=== PATIENT | male | born 1995 | race Two or more races ===

== ENCOUNTER 2020-09-25 04:12 | Inpatient (IN) | payer OTHER ==
[~2020-09-25] VITALS: Ht 175.3 cm; Wt 94.9 kg
[2020-09-25] MEDS ORDERED: ACETAMINOPHEN 500 MG TAB PO ONE (06:15)
[2020-09-25] MEDS ORDERED: PIPERACILLIN-TAZOB 3.375GM 100 ML IV ONE (06:15)
[2020-09-25] MEDS ORDERED: SODIUM CHLORIDE 0.9% 1,000 ML IV ONE (06:15)
[2020-09-25] MEDS ORDERED: ACETAMINOPHEN 325 MG TAB PO ONE (06:15)
[2020-09-25 07:01] LABS: Basophils # (auto) 0 10 ^3/uL (0-0.2); Basophils % (auto) 0.4 % (0.0-2.0); Eosinophils # (auto) 0 10 ^3/uL (0-0.8); Eosinophils % (auto) 0.1 % (0.0-7.0); Hematocrit 45.8 % (41.0-53.0); Hemoglobin 15.7 g/dL (13.5-17.5); Lymphocytes # (auto) 0.7 10 ^3/uL (0.4-5.4); Lymphocytes % (auto) 26.2 % (10.0-50.0); Mean Corpuscular Hemoglobin 30.5 pg (28.0-32.0); Mean Corpuscular Hgb Conc. 34.3 g/dL (32.0-36.0); Mean Corpuscular Volume 88.8 fL (80.0-100.0); Monocytes # (auto) 0.4 10 ^3/uL (0-1.3); Monocytes % (auto) 12.6 % (0.0-12.0); Neutrophils # (auto) 1.7 10 ^3/uL (1.6-8.6); Neutrophils % (auto) 60.7 % (37.0-80.0); Nucleated Red Blood Cells % 0.4 %; Platelet Count (auto) 178 10^3/uL (140-450); Red Blood Cells 5.16 10^6/uL (4.5-5.90); Red Cell Distribution Width 12.8 % (11.8-14.3); White Blood Cell 2.8 10^3/uL (4.4-10.8)
[2020-09-25] MEDS ORDERED: AZITHROMYCIN 500MG/ 250ML 250 ML IV ONE (07:45)
[2020-09-25 07:54] LABS: Alanine Aminotransferase 34 U/L (16-61); Alkaline Phosphatase 57 U/L (45-117); Anion Gap 8 (5-15); Aspartate Aminotransferase 25 U/L (15-37); Blood Urea Nitrogen 9 mg/dL (7-18); Calcium 9.1 mg/dL (8.5-10.1); Carbon Dioxide 28 mmol/L (21-32); Chloride 98 mmol/L (98-107); GFR African American 87 mL/min; GFR Non-African American 72 mL/min; Glucose 95 mg/dL (74-106); Potassium 4.1 mmol/L (3.5-5.1); Sodium 134 mmol/L (136-145)
[2020-09-25 07:55] LABS: Albumin 4.1 g/dL (3.4-5.0); Bilirubin, Total 0.5 mg/dL (0.2-1.0); Total Protein 8.4 g/dL (6.4-8.2)
[2020-09-25] MEDS ORDERED: ASCORBIC ACID 500 MG TAB PO ONE (08:00)
[2020-09-25] MEDS ORDERED: ZINC SULFATE 220mg CAP or TAB PO ONE (08:00)
[2020-09-25] MEDS ORDERED: ACETAMINOPHEN 500 MG TAB PO PRN ×2 (09:15→10:15)
[2020-09-25 09:24] VITALS: BP 100/56
[2020-09-25 09:37] LABS: Magnesium 2.1 mg/dL (1.6-2.6)
[2020-09-25] MEDS: ZINC SULFATE 220mg CAP or TAB PO SCH (09:40)
[2020-09-25] MEDS: ASCORBIC ACID 1,000 MG TAB PO SCH (09:41)
[2020-09-25 09:46] LABS: CRP High Sensitivity 6.27 mg/dL (< 0.3)
[2020-09-25] MEDS: BUDESONIDE (INHALATION) 180 MCG IH IN SCH ×2 (10:00→22:07)
[2020-09-25] MEDS: DexAMETHasone SOD PHOS 10MG/1ML VIAL INJ IV SCH (10:05)
[2020-09-25] MEDS: DOXYCYCLINE 100MG/250ML 250 ML IV SCH ×2 (10:05→21:22)
[2020-09-25] MEDS ORDERED: ONDANSETRON HCL 4 MG/2 ML VIAL ONE (10:13)
[2020-09-25] MEDS ORDERED: ONDANSETRON HCL 4 MG/2 ML VIAL IV PRN (10:15)
[2020-09-25] MEDS ORDERED: MORPHINE SULF INJ 2 MG/ML SYRINGE 1ML IV PRN (10:15)
[2020-09-25] MEDS: ENOXAPARIN SOD 40 MG/0.4 ML SYRINGE SC SCH (10:19)
[2020-09-25] MEDS: CHOLECALCIFEROL (VITD3) 2,000 UNIT CAP PO SCH (10:19)
--- NOTE | 2020-09-25 11:50 | NUR ---
Telemetry admit from ER CLARENCE HIDALGO admitted to Telemetry unit after SBAR received. Patient oriented to Karen Petty, primary RN, unit, room, bed, and unit policies regarding patient care and visiting hours. Patient now on continuous telemetry monitoring, tele box # 7 and telemetry reading on arrival to unit is . Patient placed on bedside oxygen, weighed by bedscale and encouraged to call if they need something. All questions and concerns addressed, patient verbalized understanding. Note:
[2020-09-25 12:00] VITALS: BP 110/64
[2020-09-25] MEDS ORDERED: ONDANSETRON HCL 4 MG/2 ML VIAL IV ONE (12:00)
--- NOTE | 2020-09-25 12:00 | NUR ---
PT IS ALERT ORIENTED X4, ROOM AIR 96%, NO DISTRESS NOTED, NO COUGH NOTED AT THIS TIME, PAIN 0/10, ABLE TO AMBULATE AND SELF REPOSITION NEEDED, ORIENTED TO CALL LIGHT
--- NOTE | 2020-09-25 12:06 | NUR ---
INFLUENZA AB SAMPLE, SWAPS TO LAB
[2020-09-25 12:31] VITALS: BP 113/74
[2020-09-25] MEDS: ALBUTEROL SULF HFA 90MCG INH 200DOSE IN SCH ×2 (14:00→22:06)
--- NOTE | 2020-09-25 14:00 | NUR ---
INCENTIVE SPIROMETR EDUCATED PT HOW TO USE IT, VERBALIS UNDERSTANDING, CONTINUE MONITORING
[2020-09-25 17:18] VITALS: BP 124/64
--- NOTE | 2020-09-25 18:46 | NUR ---
PT CONTINUE STABLE, TOLERATED DIET, AMBULATE TO BATHROOM NEEDED, CONTINUE MONITORING
[2020-09-25 22:00] VITALS: BP 133/63
[2020-09-26 05:00] VITALS: BP 117/66
[2020-09-26] MEDS: ALBUTEROL SULF HFA 90MCG INH 200DOSE IN SCH ×3 (06:16→22:25)
[2020-09-26] MEDS: BUDESONIDE (INHALATION) 180 MCG IH IN SCH ×2 (06:16→22:25)
[2020-09-26 06:37] LABS: Basophils # (auto) 0 10 ^3/uL (0-0.2); Basophils % (auto) 0.3 % (0.0-2.0); Eosinophils # (auto) 0 10 ^3/uL (0-0.8); Hematocrit 43.9 % (41.0-53.0); Hemoglobin 14.6 g/dL (13.5-17.5); Lymphocytes % (auto) 28.1 % (10.0-50.0); Mean Corpuscular Hemoglobin 29.8 pg (28.0-32.0); Mean Corpuscular Hgb Conc. 33.2 g/dL (32.0-36.0); Mean Corpuscular Volume 89.7 fL (80.0-100.0); Monocytes # (auto) 0.6 10 ^3/uL (0-1.3); Monocytes % (auto) 15.2 % (0.0-12.0); Neutrophils # (auto) 2.1 10 ^3/uL (1.6-8.6); Neutrophils % (auto) 56.4 % (37.0-80.0); Nucleated Red Blood Cells % 0.1 %; Platelet Count (auto) 171 10^3/uL (140-450); Red Cell Distribution Width 12.9 % (11.8-14.3); White Blood Cell 3.6 10^3/uL (4.4-10.8)
[2020-09-26 06:55] LABS: Calcium 8.9 mg/dL (8.5-10.1); Potassium 4.2 mmol/L (3.5-5.1)
[2020-09-26 07:01] LABS: Albumin 3.6 g/dL (3.4-5.0); BUN/Creatinine Ratio 9.3; Bilirubin, Total 0.3 mg/dL (0.2-1.0); Total Protein 7.5 g/dL (6.4-8.2)
--- NOTE | 2020-09-26 08:00 | NUR ---
ASSESSMENT NOTE PT IS ALERT ORIENTED X4, RESTING IN BED IN RA, NO DISTRESS NOTED, ABLE TO SELF REPOSITION, AND VERBALIS HIS NEEDS, NO DISTRESS NOTED, PAIN 0/10, CALL LIGHT WITHIN REACH
--- NOTE | 2020-09-26 08:30 | NUR ---
TINGED BLOOD SPUTUM PT IN THE BATHROOM HAS A COUGH, WITH A TINGED BLOOD SPUTUM, NO DISTRESS NOTED
[2020-09-26 09:00] VITALS: BP 130/67
[2020-09-26] MEDS: DexAMETHasone SOD PHOS 10MG/1ML VIAL INJ IV SCH (09:22)
[2020-09-26] MEDS: ASCORBIC ACID 1,000 MG TAB PO SCH (09:23)
[2020-09-26] MEDS: FAMOTIDINE 20 MG TAB PO SCH (09:23)
[2020-09-26] MEDS: DOXYCYCLINE 100MG/250ML 250 ML IV SCH ×2 (09:23→22:19)
[2020-09-26] MEDS: CHOLECALCIFEROL (VITD3) 2,000 UNIT CAP PO SCH (09:23)
[2020-09-26] MEDS: ZINC SULFATE 220mg CAP or TAB PO SCH (09:23)
[2020-09-26] MEDS: ENOXAPARIN SOD 40 MG/0.4 ML SYRINGE SC SCH (09:24)
--- NOTE | 2020-09-26 11:40 | NUR ---
IV removal IV DC'd with sterile technique, SINCE ITS LEAKINGcatheter fully intact. Pressure dressing applied to site. Patient tolerated procedure well. Discharged with aftercare instructions per MD. NOTE:
--- NOTE | 2020-09-26 11:58 | NUR ---
IV insertion IV access obtained, via clean sterile technique by inserting 22 gauge catheter at after attempt(s). IV secured properly. No trauma to site. Patient tolerated procedure well.
--- NOTE | 2020-09-26 12:30 | NUR ---
DR DAMON AT BED SIDE FOLLOWING UP ON PT, MADE AWARE OF SPUTUM TINGED BLOOD, INFORM PT THAT HE WILL GOING TO HAVE A CHEST CT, EXPLAIN WHY, VERBALIS UNDERSTANDING
[2020-09-26 13:00] VITALS: BP 116/68
[2020-09-26] MEDS ORDERED: IOHEXOL 350 MG/ML 100ML IJ ONE (14:19)
[2020-09-26 16:59] VITALS: BP 134/72
--- NOTE | 2020-09-26 18:34 | NUR ---
PT CONTINUE STABLE, CONTINUE MONITORING
--- NOTE | 2020-09-26 19:40 | NUR ---
Opening Shift Note Assumed care of patient. Patient is awake, alert, and oriented X 4. No S/S of respiratory distress. Pt is on RA. Respirations are regular and non-labored. Pt denies pain at this time. Bed in lowest locked position, side rails up X 2, call light is within reach. POC discussed and pt instructed to call for assistance as needed. Will continue to monitor for changes Q1hr and PRN.
[2020-09-26 22:00] VITALS: BP 106/54
[2020-09-26] MEDS: HYDROcodone-ACET 5/325MG TAB PO PRN (22:19)
[2020-09-27 05:00] VITALS: BP 109/59
[2020-09-27] MEDS: BUDESONIDE (INHALATION) 180 MCG IH IN SCH ×2 (06:34→21:36)
[2020-09-27] MEDS: ALBUTEROL SULF HFA 90MCG INH 200DOSE IN SCH ×3 (06:34→21:36)
[2020-09-27 07:20] LABS: Basophils # (auto) 0 10 ^3/uL (0-0.2); Basophils % (auto) 0.2 % (0.0-2.0); Eosinophils # (auto) 0 10 ^3/uL (0-0.8); Hematocrit 41.9 % (41.0-53.0); Hemoglobin 14.2 g/dL (13.5-17.5); Lymphocytes # (auto) 1.4 10 ^3/uL (0.4-5.4); Lymphocytes % (auto) 24.6 % (10.0-50.0); Mean Corpuscular Hemoglobin 30.2 pg (28.0-32.0); Mean Corpuscular Hgb Conc. 33.8 g/dL (32.0-36.0); Mean Corpuscular Volume 89.4 fL (80.0-100.0); Monocytes # (auto) 0.6 10 ^3/uL (0-1.3); Monocytes % (auto) 10.2 % (0.0-12.0); Neutrophils # (auto) 3.7 10 ^3/uL (1.6-8.6); Nucleated Red Blood Cells % 1.3 %; Platelet Count (auto) 167 10^3/uL (140-450); Red Blood Cells 4.69 10^6/uL (4.5-5.90); Red Cell Distribution Width 12.6 % (11.8-14.3); White Blood Cell 5.6 10^3/uL (4.4-10.8)
[2020-09-27 07:43] LABS: BUN/Creatinine Ratio 10.7; Calcium 8.5 mg/dL (8.5-10.1); Potassium 4.2 mmol/L (3.5-5.1)
--- NOTE | 2020-09-27 08:00 | NUR ---
ASSESSMENT NOTE PT IS ALERT ORIENTED X4, RESTING IN BED IN RA, NO DISTRESS NOTED, ABLE TO SELF REPOSITION, AND VERBALIS HIS NEEDS, NO DISTRESS NOTED, PAIN 0/10, PT IS COUGHING MORE, COMPARING YESTERDAY, NON PRODUCTIVE COUGH, NO BLOOD NOTED, MADE AWARE THAT WILL CALL THE HOSPITAL LIST FOR A COUGH MEDS, CALL LIGHT WITHIN REACH
[2020-09-27 09:00] VITALS: BP 137/71
[2020-09-27] MEDS: ZINC SULFATE 220mg CAP or TAB PO SCH (09:53)
[2020-09-27] MEDS: ASCORBIC ACID 1,000 MG TAB PO SCH (09:53)
[2020-09-27] MEDS: DexAMETHasone SOD PHOS 10MG/1ML VIAL INJ IV SCH (09:53)
[2020-09-27] MEDS: FAMOTIDINE 20 MG TAB PO SCH (09:53)
[2020-09-27] MEDS: DOXYCYCLINE 100MG/250ML 250 ML IV SCH ×2 (09:53→22:23)
[2020-09-27] MEDS: ENOXAPARIN SOD 40 MG/0.4 ML SYRINGE SC SCH (09:54)
[2020-09-27] MEDS: CHOLECALCIFEROL (VITD3) 2,000 UNIT CAP PO SCH (09:54)
--- NOTE | 2020-09-27 12:19 | NUR ---
PT IS TAKING A SHOWER, SUPPLIES GIVEN TO PT
[2020-09-27 13:00] VITALS: BP 117/58
[2020-09-27] MEDS: guaiFENesin-DM 100/10mg/5ml SYR PO PRN ×2 (13:05→22:23)
[2020-09-27 17:00] VITALS: BP 103/47
--- NOTE | 2020-09-27 18:05 | NUR ---
PT CONTINUE STABLE, CONTINUE MONITORING
--- NOTE | 2020-09-27 19:30 | NUR ---
Opening Shift Note Received report from cheryl Jones RN. Assumed care of patient, awake and alert. No S/S of distress/SOB or pain, but c/o cough with small amount of bloody sputum. Will give cough medication as ordered. Instructed on POC and to call for assist PRN, will continue to monitor for changes Q1hr and PRN. Bed placed in lowest position and call light within reach.
[2020-09-27 22:00] VITALS: BP 118/64
[2020-09-27] MEDS: HYDROcodone-ACET 5/325MG TAB PO PRN (22:39)
--- NOTE | 2020-09-28 01:20 | NUR ---
IV insertion IV access obtained, via clean sterile technique by inserting 22 gauge catheter at right hand after first attempt. IV secured properly. No trauma to site. Patient tolerated procedure well.
[2020-09-28 05:58] VITALS: BP 136/66
[2020-09-28] MEDS: ALBUTEROL SULF HFA 90MCG INH 200DOSE IN SCH ×3 (06:30→21:45)
[2020-09-28] MEDS: BUDESONIDE (INHALATION) 180 MCG IH IN SCH ×2 (06:30→21:45)
[2020-09-28 06:41] LABS: Basophils # (auto) 0 10 ^3/uL (0-0.2); Basophils % (auto) 0.6 % (0.0-2.0); Eosinophils # (auto) 0 10 ^3/uL (0-0.8); Eosinophils % (auto) 0.1 % (0.0-7.0); Hematocrit 42.8 % (41.0-53.0); Hemoglobin 14.5 g/dL (13.5-17.5); Lymphocytes # (auto) 0.9 10 ^3/uL (0.4-5.4); Lymphocytes % (auto) 15.8 % (10.0-50.0); Mean Corpuscular Hemoglobin 30.1 pg (28.0-32.0); Mean Corpuscular Hgb Conc. 33.9 g/dL (32.0-36.0); Mean Corpuscular Volume 88.8 fL (80.0-100.0); Monocytes # (auto) 0.6 10 ^3/uL (0-1.3); Monocytes % (auto) 10.1 % (0.0-12.0); Neutrophils # (auto) 4.3 10 ^3/uL (1.6-8.6); Neutrophils % (auto) 73.4 % (37.0-80.0); Nucleated Red Blood Cells % 0.1 %; Platelet Count (auto) 172 10^3/uL (140-450); Red Blood Cells 4.82 10^6/uL (4.5-5.90); Red Cell Distribution Width 12.8 % (11.8-14.3); White Blood Cell 5.9 10^3/uL (4.4-10.8)
[2020-09-28 06:59] LABS: Calcium 8.7 mg/dL (8.5-10.1); Potassium 3.8 mmol/L (3.5-5.1)
[2020-09-28 07:03] LABS: BUN/Creatinine Ratio 10.5
[2020-09-28 08:32] VITALS: BP 120/60
[2020-09-28 09:00] VITALS: BP 120/60
[2020-09-28] MEDS: DOXYCYCLINE 100MG/250ML 250 ML IV SCH ×2 (09:18→21:47)
[2020-09-28] MEDS: DexAMETHasone SOD PHOS 10MG/1ML VIAL INJ IV SCH (09:18)
[2020-09-28] MEDS: CHOLECALCIFEROL (VITD3) 2,000 UNIT CAP PO SCH (09:19)
[2020-09-28] MEDS: guaiFENesin-DM 100/10mg/5ml SYR PO PRN ×2 (09:19→22:56)
[2020-09-28] MEDS: FAMOTIDINE 20 MG TAB PO SCH (09:19)
[2020-09-28] MEDS: ENOXAPARIN SOD 40 MG/0.4 ML SYRINGE SC SCH (09:19)
[2020-09-28] MEDS: ZINC SULFATE 220mg CAP or TAB PO SCH (09:20)
[2020-09-28] MEDS: ASCORBIC ACID 1,000 MG TAB PO SCH (09:20)
--- NOTE | 2020-09-28 10:58 | NUR ---
Nutrition Assessment Note please see attached link for complete assessment Est energy needs ABW 85 [id number] kcal (23-25 kcal/kg ABW), Est protein needs: 85-93 g (1.0-1.1 g/kg ABW). Will reassess prn. Addendum: 09/28/20 at [address] Amended: Links added.
[2020-09-28] MEDS ORDERED: ASCO10003 PO (12:04)
[2020-09-28] MEDS ORDERED: DOXY-332 PO (12:04)
[2020-09-28] MEDS ORDERED: GUAI600T23 PO (12:05)
--- NOTE | 2020-09-28 12:34 | NUR ---
MD ROUNDING MD Alexandra DAMON AT BEDSIDE. ALL QUESTIONS AND CONCERNS ADDRESSED AT THIS TIME. PER MD PATIENT IS OKAY TO BE DISCHARGED HE HAS BEEN ON ROOM AIR SINCE ADMISSION
[2020-09-28 13:00] VITALS: BP 117/59
--- NOTE | 2020-09-28 13:03 | NUR ---
PATIENT CALLED TO ROOM PATIENT STATES "CAN YOU PLEASE CHECK MY OXYGEN" UPON ASSESSMENT PATIENT HAS 25 RR AND HEART RATE 73 WITH SPO2 88% - 90% ON ROOM AIR. RN WILL PAGE MD WITH UPDATED RESULTS
--- NOTE | 2020-09-28 13:07 | NUR ---
RETURNED PAGE. PER RN IS TO RECHECK OXYGEN IN TWO HOURS AND CALL MD BACK WITH RESULTS
--- NOTE | 2020-09-28 13:07 | NUR ---
PAGED RE: PATIENT OXYGEN SATURATION. AWAITING CALL BACK
--- NOTE | 2020-09-28 15:24 | NUR ---
SPO2 RE-ASSESSMENT SPO2 ON ROOM AIR 88% WILL CALL MD AND UPDATE ON STATUS
--- NOTE | 2020-09-28 15:25 | NUR ---
LAW DAMON RE: SPO2 READING 88% ON ROOM AIR
[2020-09-28 17:06] VITALS: BP 104/55
--- NOTE | 2020-09-28 19:55 | NUR ---
OPENING SHIFT NOTE Assumed care of patient who is A&O x4. Currently on 2L NC. SPo2 is 95% at this time. Reports SOB at rest and exertion and productive cough with green colored sputum as well as diarrhea. Denies pain at this time. PIV in right hand is intact and patent. Flushed with 10ml NS. POC discussed and patient verbalizes understanding. Bed is in low locked position with side rails up x2. call light is within reach and patient encouraged to call for assistance when needed. Will continue to monitor for changes PRN.
--- NOTE | 2020-09-28 21:30 | NUR ---
Patient sitting at edge of bed with noted labored breathing and dry coughing. Patient states he just returned from the restroom and, "This happens every time I walk to the bathroom". Spo2 is 92% on RA. Patient encouraged to replace nasal canula. Patient laid back in bed and nasal canula replaced. SPo2 increased to 94% on 2L.
[2020-09-28 22:00] VITALS: BP 112/67
--- NOTE | 2020-09-29 | NUR ---
HOSPITALIST Patient reports difficulty sleeping for the past two nights. Requests sleeping pill. Hospitalist paged. Awaiting call back.
[2020-09-29] MEDS ORDERED: TEMAZEPAM 15 MG CAP PO ONE (00:30)
--- NOTE | 2020-09-29 00:30 | NUR ---
HOSPITALIST CALL BACK Received call from Bolivar Wilde NP regarding patient's request for sleeping pill. New orders received. Read back and verified. Will follow through.
--- NOTE | 2020-09-29 05:20 | NUR ---
TEMPERATURE Patient's oral temperature is 101.2. Cooling measures applied and Tylenol administered according to orders.
[2020-09-29 06:03] VITALS: BP 127/63
[2020-09-29] MEDS: ALBUTEROL SULF HFA 90MCG INH 200DOSE IN SCH ×3 (06:28→23:25)
[2020-09-29] MEDS: BUDESONIDE (INHALATION) 180 MCG IH IN SCH ×2 (06:29→23:25)
--- NOTE | 2020-09-29 06:30 | NUR ---
REASSESSMENT Temperature reassessed and is 97.7 orally. Cooling measures discontinued.
--- NOTE | 2020-09-29 07:26 | NUR ---
OPENING SHIFT NOTE Assumed care of patient who is A&O x4. Currently on 2L NC. SPo2 is 95% at this time. Reports SOB at rest and exertion and productive cough with green colored sputum as well as diarrhea. Denies pain at this time. Bed is in low locked position with side rails up x2. call light is within reach and patient encouraged to call for assistance when needed. Will continue to monitor for changes PRN.
[2020-09-29 08:33] VITALS: BP 117/58
[2020-09-29] MEDS: ENOXAPARIN SOD 40 MG/0.4 ML SYRINGE SC SCH (08:34)
[2020-09-29] MEDS: ZINC SULFATE 220mg CAP or TAB PO SCH (08:34)
[2020-09-29] MEDS: FAMOTIDINE 20 MG TAB PO SCH (08:34)
[2020-09-29] MEDS: CHOLECALCIFEROL (VITD3) 2,000 UNIT CAP PO SCH (08:34)
[2020-09-29] MEDS: ASCORBIC ACID 1,000 MG TAB PO SCH (08:35)
[2020-09-29] MEDS: DexAMETHasone SOD PHOS 10MG/1ML VIAL INJ IV SCH (08:35)
[2020-09-29] MEDS: DOXYCYCLINE 100MG/250ML 250 ML IV SCH ×2 (08:35→21:59)
--- NOTE | 2020-09-29 10:58 | NUR ---
LAW DAMON RE: CRITICAL ABG RESULTS. AWAITING CALL BACK
--- NOTE | 2020-09-29 11:18 | NUR ---
MD Alexandra DAMON RETURNED PAGE NEW ORDERS RECEIVED.
--- NOTE | 2020-09-29 11:30 | NUR ---
IV insertion IV access obtained, via clean sterile technique by inserting 22 gauge catheter at RIGHT FOREARM after 1 attempt(s). IV secured properly. No trauma to site. Patient tolerated well.
--- NOTE | 2020-09-29 11:31 | NUR ---
IV removal IV DC'd with clean sterile technique, catheter fully intact. Pressure dressing applied to site. Patient tolerated well.
[2020-09-29 12:37] VITALS: BP 123/73
[2020-09-29 16:42] VITALS: BP 131/62
[2020-09-29 17:38] LABS: Albumin 3.2 g/dL (3.4-5.0); Potassium 4.2 mmol/L (3.5-5.1)
[2020-09-29 17:41] LABS: BUN/Creatinine Ratio 10.2; Bilirubin, Total 0.5 mg/dL (0.2-1.0); Total Protein 7.4 g/dL (6.4-8.2)
[2020-09-29] MEDS ORDERED: REMDESIVIR 200 MG in NS 210ml LOADING DOSE ADULT IV ONE (20:00)
--- NOTE | 2020-09-29 20:45 | NUR ---
Opening Shift Note Assumed care of patient, awake and alert, oriented x 4. on oxygen at 3L via NC, No S/S of distress. Patient turns independently in bed and ambulates with steady gait. Bed in lowest locked position with side rails up x 2 and call light within reach. Instructed on POC and to call for assist PRN, will continue to monitor for changes Q1hr and PRN.
--- NOTE | 2020-09-29 20:53 | NUR ---
REMDESIVIR STARTED BP 121/65. NO S/S OF DISTRESS.
[2020-09-29] MEDS: guaiFENesin-DM 100/10mg/5ml SYR PO PRN (21:07)
--- NOTE | 2020-09-29 21:08 | NUR ---
REMDESIVIR 15MIN ASSESSMENT BP 125/60. NO S/S OF DISTRESS. NO REACTION NOTED AT THIS TIME.
--- NOTE | 2020-09-29 21:55 | NUR ---
REMDESIVIR COMPLETED BP 127/64. NO S/S OF DISTRESS. NO ADVERSE REACTION NOTED.
[2020-09-29 23:03] VITALS: BP 125/60
[2020-09-30] VITALS (9 sets, daily range): BP systolic 90–120; BP diastolic 54–68
--- NOTE | 2020-09-30 02:16 | NUR ---
PLASMA STARTED NO S/S OF DISTRESS AT THIS TIME.
[2020-09-30] MEDS: HYDROcodone-ACET 5/325MG TAB PO PRN ×2 (02:25→10:37)
--- NOTE | 2020-09-30 03:51 | NUR ---
PLASMA COMPLETED NO S/S OF DISTRESS. NO REACTION NOTED.
[2020-09-30] MEDS: ALBUTEROL SULF HFA 90MCG INH 200DOSE IN SCH ×3 (06:26→21:13)
[2020-09-30] MEDS: BUDESONIDE (INHALATION) 180 MCG IH IN SCH ×2 (06:26→21:13)
--- NOTE | 2020-09-30 06:40 | NUR ---
Closing Note patient resting in bed with oxygen on at 3L via NC, even and unlabored respirations, no s/s of distress. Bed in lowest locked position with side rails up x 2 and call light within reach.
--- NOTE | 2020-09-30 07:35 | NUR ---
Opening Shift Note Assumed care of patient, awake and alert. No S/S of distress, reports SOB with activity, reports body aches with mild pain. Instructed on POC and to call for assist PRN, will continue to monitor for changes Q1hr and PRN.
[2020-09-30 07:57] LABS: Basophils # (auto) 0 10 ^3/uL (0-0.2); Basophils % (auto) 0.1 % (0.0-2.0); Eosinophils # (auto) 0 10 ^3/uL (0-0.8); Hematocrit 41.2 % (41.0-53.0); Hemoglobin 13.9 g/dL (13.5-17.5); Lymphocytes # (auto) 0.9 10 ^3/uL (0.4-5.4); Mean Corpuscular Hemoglobin 29.8 pg (28.0-32.0); Mean Corpuscular Hgb Conc. 33.8 g/dL (32.0-36.0); Mean Corpuscular Volume 88.1 fL (80.0-100.0); Monocytes # (auto) 0.9 10 ^3/uL (0-1.3); Monocytes % (auto) 11.8 % (0.0-12.0); Neutrophils # (auto) 5.7 10 ^3/uL (1.6-8.6); Neutrophils % (auto) 76.1 % (37.0-80.0); Nucleated Red Blood Cells % 0.2 %; Platelet Count (auto) 189 10^3/uL (140-450); Red Blood Cells 4.68 10^6/uL (4.5-5.90); Red Cell Distribution Width 12.9 % (11.8-14.3); White Blood Cell 7.5 10^3/uL (4.4-10.8)
[2020-09-30 08:33] LABS: Potassium 4.1 mmol/L (3.5-5.1)
[2020-09-30 08:44] LABS: Albumin 3.1 g/dL (3.4-5.0); BUN/Creatinine Ratio 11.8; Bilirubin, Total 0.4 mg/dL (0.2-1.0); Total Protein 7.5 g/dL (6.4-8.2)
[2020-09-30] MEDS: ZINC SULFATE 220mg CAP or TAB PO SCH (10:35)
[2020-09-30] MEDS: DexAMETHasone SOD PHOS 10MG/1ML VIAL INJ IV SCH (10:35)
[2020-09-30] MEDS: FAMOTIDINE 20 MG TAB PO SCH (10:35)
[2020-09-30] MEDS: ASCORBIC ACID 1,000 MG TAB PO SCH (10:36)
[2020-09-30] MEDS: ENOXAPARIN SOD 40 MG/0.4 ML SYRINGE SC SCH (10:36)
[2020-09-30] MEDS: CHOLECALCIFEROL (VITD3) 2,000 UNIT CAP PO SCH (10:36)
[2020-09-30] MEDS: guaiFENesin-DM 100/10mg/5ml SYR PO PRN (10:37)
[2020-09-30] MEDS ORDERED: DOXYCYCLINE 100MG/250ML 250 ML IV ONE (12:00)
[2020-09-30] MEDS ORDERED: DOXYCYCLINE 100 MG TAB/CAP PO ONE (12:00)
[2020-09-30] MEDS ORDERED: DOXYCYCLINE 100MG/250ML 250 ML IV SCH (12:00)
[2020-09-30] MEDS: REMDESIVIR 100mg in NS 230ml DAILYx4DAYS (NO VENT) IV SCH (16:41)
--- NOTE | 2020-09-30 16:42 | NUR ---
pre Remdesivir bp 99/54 p 65, reports feeling well.
--- NOTE | 2020-09-30 19:30 | NUR ---
OPENING NOTE ASSUMED CARE OF PT. ALERT AND ORIENTED. NO S/S OF SOB/DISTRESS NOTED. BED SET TO LOWEST POSITION/LOCKED, BEDSIDE RAILS UP X2, CALL LIGHT WITHIN REACH. INSTRUCTED PT TO CALL FOR ASSISTANCE. UPDATED ON POC. PT VERBALIZED UNDERSTANDING. WILL CONTINUE TO MONITOR Q1HR AND PRN.
--- NOTE | 2020-09-30 21:13 | NUR ---
PT RINSED OUT HIS MOUTH POST PULMICORT MDI Addendum: 10/01/20 at 0015 by ALEXA GONZALEZ RT Amended: Links added.
--- NOTE | 2020-09-30 22:32 | NUR ---
MD/SLEEPING PILL PAGED HOSPITALIST RE: SLEEPING PILL. AWAITING CALL BACK. MD SPOKE TO MD REQUEST FOR SLEEPING PILL WAS DENIED. WILL CONTINUE TO MONITOR.
[2020-09-30] MEDS: DOXYCYCLINE 100 MG TAB/CAP PO SCH (23:10)
[2020-10-01 05:00] VITALS: BP 109/50
[2020-10-01] MEDS: ALBUTEROL SULF HFA 90MCG INH 200DOSE IN SCH ×3 (05:54→21:27)
[2020-10-01] MEDS: BUDESONIDE (INHALATION) 180 MCG IH IN SCH ×2 (05:55→21:27)
[2020-10-01] MEDS: guaiFENesin-DM 100/10mg/5ml SYR PO PRN (06:57)
[2020-10-01 07:47] LABS: Potassium 4.3 mmol/L (3.5-5.1)
[2020-10-01 07:50] LABS: Basophils # (auto) 0 10 ^3/uL (0-0.2); Eosinophils # (auto) 0 10 ^3/uL (0-0.8); Nucleated Red Blood Cells % 0.2 %; Red Blood Cells 4.86 10^6/uL (4.5-5.90); White Blood Cell 5.1 10^3/uL (4.4-10.8)
[2020-10-01 07:54] LABS: BUN/Creatinine Ratio 12.8; Calcium 9.2 mg/dL (8.5-10.1)
[2020-10-01 08:07] LABS: Basophils % (auto) 0.2 % (0.0-2.0); Eosinophils % (auto) 0.1 % (0.0-7.0); Hematocrit 42.9 % (41.0-53.0); Hemoglobin 14.7 g/dL (13.5-17.5); Lymphocytes # (auto) 0.8 10 ^3/uL (0.4-5.4); Lymphocytes % (auto) 15.5 % (10.0-50.0); Mean Corpuscular Hemoglobin 30.3 pg (28.0-32.0); Mean Corpuscular Hgb Conc. 34.3 g/dL (32.0-36.0); Mean Corpuscular Volume 88.3 fL (80.0-100.0); Monocytes # (auto) 0.8 10 ^3/uL (0-1.3); Monocytes % (auto) 15.1 % (0.0-12.0); Neutrophils # (auto) 3.5 10 ^3/uL (1.6-8.6); Neutrophils % (auto) 69.1 % (37.0-80.0)
[2020-10-01 08:12] LABS: Platelet Count (auto) 251 10^3/uL (140-450)
[2020-10-01 08:41] VITALS: BP 121/62
[2020-10-01 09:11] VITALS: BP 121/62
[2020-10-01 10:52] LABS: Albumin 3.1 g/dL (3.4-5.0)
[2020-10-01 10:56] LABS: Bilirubin, Direct 0.1 mg/dL (0-0.2); Bilirubin, Total 0.3 mg/dL (0.2-1.0); Total Protein 7.4 g/dL (6.4-8.2)
[2020-10-01] MEDS: DOXYCYCLINE 100 MG TAB/CAP PO SCH ×2 (11:58→21:01)
[2020-10-01] MEDS: ASCORBIC ACID 1,000 MG TAB PO SCH (11:58)
[2020-10-01] MEDS: FAMOTIDINE 20 MG TAB PO SCH (11:58)
[2020-10-01] MEDS: DexAMETHasone SOD PHOS 10MG/1ML VIAL INJ IV SCH (11:58)
[2020-10-01] MEDS: CHOLECALCIFEROL (VITD3) 2,000 UNIT CAP PO SCH (11:58)
[2020-10-01] MEDS: ENOXAPARIN SOD 40 MG/0.4 ML SYRINGE SC SCH (11:59)
[2020-10-01] MEDS: ZINC SULFATE 220mg CAP or TAB PO SCH (11:59)
[2020-10-01 13:00] VITALS: BP 118/64
[2020-10-01] MEDS ORDERED: guaiFENesin-CODEINE Liq 5 ML UD GT PRN (13:30)
--- NOTE | 2020-10-01 14:23 | NUR ---
Nutrition Followup Note Wt 100.1 kg Pt was in COVID isolation. pt with no distress noted per RN. pt is currently on regular diet with adequate Po fo 100% x 3 per RN doc Est energy needs ABW 85 [id number] kcal (23-25 kcal/kg ABW), Est protein needs: 85-93 g (1.0-1.1 g/kg ABW). Will reassess prn. Labs: GLU 114 H BM: pt had 3 BM 09/30 per Rn note Skin: BS 22 mod risk, full details in live in caregiver note PES: Decreased nutrient needs r/t adiposity aeb pt`s high BMI of 32.6 kgm2 Comments Will continue to monitor PO status, skin status, pertinent labs and weight trends. Will f/u in 3-5 days 1) refer to [employer] patrol judge on DC. 2) continue current plan of care
[2020-10-01 16:46] VITALS: BP 112/68
[2020-10-01] MEDS: REMDESIVIR 100mg in NS 230ml DAILYx4DAYS (NO VENT) IV SCH (17:26)
[2020-10-01] MEDS: guaiFENesin-CODEINE Liq 5 ML UD PO PRN ×2 (18:34→22:37)
[2020-10-01] MEDS: ZOLPIDEM TARTRATE 5 MG TAB PO PRN (21:01)
[2020-10-02 05:00] VITALS: BP 110/58
[2020-10-02] MEDS: BUDESONIDE (INHALATION) 180 MCG IH IN SCH ×2 (06:24→21:36)
[2020-10-02] MEDS: ALBUTEROL SULF HFA 90MCG INH 200DOSE IN SCH ×3 (06:24→21:36)
[2020-10-02 06:59] LABS: Basophils # (auto) 0 10 ^3/uL (0-0.2); Basophils % (auto) 0.1 % (0.0-2.0); Eosinophils # (auto) 0 10 ^3/uL (0-0.8); Eosinophils % (auto) 0.1 % (0.0-7.0); Hematocrit 42.4 % (41.0-53.0); Hemoglobin 14.3 g/dL (13.5-17.5); Lymphocytes # (auto) 1.6 10 ^3/uL (0.4-5.4); Mean Corpuscular Hgb Conc. 33.9 g/dL (32.0-36.0); Mean Corpuscular Volume 88.7 fL (80.0-100.0); Monocytes # (auto) 0.8 10 ^3/uL (0-1.3); Monocytes % (auto) 11.9 % (0.0-12.0); Neutrophils # (auto) 4.6 10 ^3/uL (1.6-8.6); Neutrophils % (auto) 64.9 % (37.0-80.0); Nucleated Red Blood Cells % 0.1 %; Platelet Count (auto) 262 10^3/uL (140-450); Red Blood Cells 4.78 10^6/uL (4.5-5.90); Red Cell Distribution Width 13.1 % (11.8-14.3); White Blood Cell 7.1 10^3/uL (4.4-10.8)
[2020-10-02 07:21] LABS: Calcium 8.7 mg/dL (8.5-10.1)
[2020-10-02 07:27] LABS: BUN/Creatinine Ratio 16.7
[2020-10-02 08:56] VITALS: BP 107/58
[2020-10-02] MEDS: DexAMETHasone SOD PHOS 10MG/1ML VIAL INJ IV SCH (10:34)
[2020-10-02] MEDS: CHOLECALCIFEROL (VITD3) 2,000 UNIT CAP PO SCH (10:34)
[2020-10-02] MEDS: FAMOTIDINE 20 MG TAB PO SCH (10:34)
[2020-10-02] MEDS: ENOXAPARIN SOD 40 MG/0.4 ML SYRINGE SC SCH (10:35)
[2020-10-02] MEDS: ZINC SULFATE 220mg CAP or TAB PO SCH (10:35)
[2020-10-02] MEDS: DOXYCYCLINE 100 MG TAB/CAP PO SCH ×2 (10:35→22:19)
[2020-10-02] MEDS: ASCORBIC ACID 1,000 MG TAB PO SCH (10:35)
--- NOTE | 2020-10-02 11:00 | NUR ---
IV insertion IV access obtained, via clean sterile technique by inserting 22 gauge catheter at left hand after 1 attempt. IV secured properly. No trauma to site. Patient tolerated procedure well.
[2020-10-02 12:52] VITALS: BP 100/56
--- NOTE | 2020-10-02 13:42 | NUR ---
Respiratory note: TITRATED FIO2 FROM 6L TO 2L N/C.
[2020-10-02 16:34] VITALS: BP 104/59
[2020-10-02] MEDS: REMDESIVIR 100mg in NS 230ml DAILYx4DAYS (NO VENT) IV SCH (17:00)
--- NOTE | 2020-10-02 17:00 | NUR ---
PRE REMDESIVIR VITALS 113/61 56HR 93% 98.1 TEMP 20 RR
--- NOTE | 2020-10-02 17:15 | NUR ---
15 MINUTE DURING REMDESIVIR VITALS 119/65 68HR 95% 98.1 TEMP 20 RR NO S/S OF DISTRESS NOTED.
--- NOTE | 2020-10-02 18:20 | NUR ---
POST REMDESIVIR VITALS 103/51 52HR 94% 97.9 TEMP 20 RR
--- NOTE | 2020-10-02 19:00 | NUR ---
1 hour post remdesivir 1230/59 b/p hr 55 94% 19 rr 98.0 temp no S/S of distress noted.
[2020-10-02 22:00] VITALS: BP 119/43
[2020-10-02] MEDS: ZOLPIDEM TARTRATE 5 MG TAB PO PRN (22:35)
[2020-10-03 05:00] VITALS: BP 98/53
[2020-10-03] MEDS: ALBUTEROL SULF HFA 90MCG INH 200DOSE IN SCH ×3 (06:02→21:10)
[2020-10-03] MEDS: BUDESONIDE (INHALATION) 180 MCG IH IN SCH ×2 (06:02→21:09)
[2020-10-03 08:02] LABS: Potassium 3.9 mmol/L (3.5-5.1)
[2020-10-03 08:14] LABS: BUN/Creatinine Ratio 17.2
[2020-10-03 08:17] LABS: Bilirubin, Total 0.3 mg/dL (0.2-1.0); Total Protein 6.9 g/dL (6.4-8.2)
[2020-10-03 09:00] VITALS: BP 109/54
[2020-10-03] MEDS: DOXYCYCLINE 100 MG TAB/CAP PO SCH ×2 (10:39→22:23)
[2020-10-03] MEDS: FAMOTIDINE 20 MG TAB PO SCH (10:39)
[2020-10-03] MEDS: ZINC SULFATE 220mg CAP or TAB PO SCH (10:39)
[2020-10-03] MEDS: CHOLECALCIFEROL (VITD3) 2,000 UNIT CAP PO SCH (10:41)
[2020-10-03] MEDS: ASCORBIC ACID 1,000 MG TAB PO SCH (10:41)
[2020-10-03] MEDS: ENOXAPARIN SOD 40 MG/0.4 ML SYRINGE SC SCH ×2 (10:41→22:24)
[2020-10-03] MEDS: DexAMETHasone SOD PHOS 10MG/1ML VIAL INJ IV SCH (12:03)
[2020-10-03 13:00] VITALS: BP 100/45
[2020-10-03 13:11] LABS: CRP High Sensitivity 2.21 mg/dL (< 0.3)
[2020-10-03] MEDS: REMDESIVIR 100mg in NS 230ml DAILYx4DAYS (NO VENT) IV SCH (16:48)
[2020-10-03 17:00] VITALS: BP 115/68
--- NOTE | 2020-10-03 17:05 | NUR ---
15 REMDESIVIR VS 109/53 63HR 94% 20RR TEMP 97.8 NO S/S OF DISTRESS NOTED Addendum: 10/03/20 at 1927 by ODELL BATISTA RN RN WRONG TIME
--- NOTE | 2020-10-03 17:48 | NUR ---
PRE REMDESIVIR V/S 97.5 59 HR 17RR 115/68 93% Addendum: 10/03/20 at 1927 by ODELL BATISTA RN RN WRONG TIME CORRECT TIME [id number]
--- NOTE | 2020-10-03 17:59 | NUR ---
POST REMDESIVIR 97.7 TEMP 112/64 BP 94% 20 RR 54 HR NO S/S OF DISTRESS NOTED
--- NOTE | 2020-10-03 19:40 | NUR ---
OPENING NOTE Received report from day shift RN. Patient is A&O X's 4 with no s/s of distress and reports no pain. Patient is currently receiving 2L via N.C. Educated patient on POC and to use call light when in need of any assistance. Patient verbalized understanding. Bed is in lowest/locked position with side rails up X's 2 and call light is within reach of patient. Will continue care.
[2020-10-03 22:00] VITALS: BP 108/47
[2020-10-03] MEDS: ZOLPIDEM TARTRATE 5 MG TAB PO PRN (22:27)
[2020-10-04 05:00] VITALS: BP 103/58
[2020-10-04] MEDS: ALBUTEROL SULF HFA 90MCG INH 200DOSE IN SCH ×2 (06:35→14:02)
[2020-10-04] MEDS: BUDESONIDE (INHALATION) 180 MCG IH IN SCH (06:35)
[2020-10-04 09:08] VITALS: BP 108/56
[2020-10-04] MEDS: ENOXAPARIN SOD 40 MG/0.4 ML SYRINGE SC SCH (10:32)
[2020-10-04] MEDS: DexAMETHasone SOD PHOS 10MG/1ML VIAL INJ IV SCH (10:32)
[2020-10-04] MEDS: ZINC SULFATE 220mg CAP or TAB PO SCH (10:32)
[2020-10-04] MEDS: DOXYCYCLINE 100 MG TAB/CAP PO SCH (10:33)
[2020-10-04] MEDS: CHOLECALCIFEROL (VITD3) 2,000 UNIT CAP PO SCH (10:33)
[2020-10-04] MEDS: FAMOTIDINE 20 MG TAB PO SCH (10:34)
[2020-10-04] MEDS: ASCORBIC ACID 1,000 MG TAB PO SCH (10:34)
--- NOTE | 2020-10-04 11:59 | NUR ---
Nutrition Followup Note Wt 94.9kg Pt is covid positive in COVID isolation. pt reports feeling better per RN note. pt is currently on regular diet with a good appetite aeb pt is with 100% po intake x 2 days per Rn nutrition note. Est energy needs ABW 85 [id number] kcal (23-25 kcal/kg ABW), Est protein needs: 85-93 g (1.0-1.1 g/kg ABW). Will reassess prn. Labs: Na 134L, Alb 3.0L BM: pt had 1 BM 10/04 per Rn note Skin: BS 22 low risk, full details in assurance services manager health care note PES: Decreased nutrient needs r/t adiposity aeb pt`s high BMI of 32.6 kgm2 Comments Will continue to monitor PO status, skin status, pertinent labs and weight trends. Will f/u in 3-5 days 1) refer to [employer] retail personal banker on DC. 2) continue current plan of care
[2020-10-04 12:13] VITALS: BP 108/56
[2020-10-04 13:00] VITALS: BP 116/63
[2020-10-04 15:45] VITALS: BP 116/63
--- NOTE | 2020-10-04 17:06 | NUR ---
DISCHARGE INSTRUCTIONS PROVIDED TO PT. PT VERBALIZED UNDERSTANDING FOR PRESCRIPTION ORDERS AND FOLLOW UP APPOINTMENT. EDUCATIONAL MATERIAL PROVIDED, ALL QUESTIONS AND CONCERNS ADDRESSED. IV CATHETER DC'D CATHETER INTACT. NO PHLEBITIS. TELE BOX REMOVED AND RETURNED TO TELE DEPT. PT SAFELY ESCORTED OUT OF UNIT.
[2020-10-04 17:12] VITALS: BP 118/61
== END 2020-10-04 17:10 | disposition home or self-care (01) | DRG 177 ==
LOC: ER 04:12 → TELE 04:13 → TELE-EAST 11:50
PROVIDERS: ADMIT Nurse Practitioner Acute Care; ATTEND Internal Medicine Pulmonary Disease
PROC: XW033E5 Introduction of Remdesivir Anti-infective into Peripheral Vein, Percutaneous Approach, New Technology Group 5 (ICD-10-PCS; 2020-09-28)
PROC: XW13325 Transfusion of Convalescent Plasma (Nonautologous) into Peripheral Vein, Percutaneous Approach, New Technology Group 5 (ICD-10-PCS; principal; 2020-09-30)
DX: U07.1 COVID-19 (principal); J12.89 Other viral pneumonia; J96.01 Acute respiratory failure with hypoxia; E87.1 Hypo-osmolality and hyponatremia; D68.59 Other primary thrombophilia; R04.2 Hemoptysis; G47.00 Insomnia, unspecified
CPT/HCPCS: 36415; 36600; 71045; 71260; 80048; 80053; 80076; 82728; 82805; 83605; 83615; 83735; 84443; 85025; 85379; 86141; 86850; 86900; 86901; 87040; 87804; 94640; 96365; 96366; 96368; G0378; J1100; J2405; J2543; J3490